=== PATIENT | male | born 1975 | race Two or more races ===

== ENCOUNTER 2020-05-16 08:24 | Emergency (ER) | payer SELFPAY ==
[2020-05-16] MEDS ORDERED: PREDNISONE 20 M20 MG PO (11:07)
[2020-05-16] MEDS ORDERED: PEPCID40 MG PO (11:07)
[2020-05-16] MEDS ORDERED: EPIPEN 2-P0.3 MG/0.3 INJ (11:07)
[2020-05-16] MEDS ORDERED: BENADRYL 50MG C50 MG PO (11:07)
== END 2020-05-16 11:50 | disposition home or self-care (01) ==
LOC: ER1 08:24
DX: T78.1XXA Other adverse food reactions, not elsewhere classified, initial encounter (principal); L50.0 Allergic urticaria; F17.200 Nicotine dependence, unspecified, uncomplicated; Z91.011 Allergy to milk products
CPT/HCPCS: 96372; 99283; J2930